=== PATIENT | female | born 1975 ===

== ENCOUNTER 2024-12-28 06:00 | Day surgery (SDC) | payer OTHER ==
[2024-12-20 11:19] VITALS: BP 170/100
[~2024-12-28] VITALS: Ht 165.1 cm; Wt 103.9 kg
[~2024-12-28 06:00] MED LIST: CLINDAMYCIN PHOSPHATE 150 MG/ML (900mg) IV SCH; COZAAR50 MG PO
[2024-12-28] MEDS ORDERED: CLINDAMYCIN PHOSPHATE 150 MG/ML (900mg) ONE (06:32)
[2024-12-28] MEDS ORDERED: POVIDONE-IODINE 118 ML BOTT TOP ONE (06:51)
[2024-12-28] MEDS ORDERED: PROMETHAZINE HCL 50 MG/ML AMPUL IM ONE (09:15)
[2024-12-28] MEDS ORDERED: AVIDOXY100 MG PO (09:18)
[2024-12-28] MEDS ORDERED: NAPR500T14 PO (09:18)
== END 2024-12-28 14:00 | disposition home or self-care (01) ==
LOC: CIR.AMB 06:00
PROVIDERS: ATTEND Obstetrics & Gynecology
DX: C54.1 Malignant neoplasm of endometrium (principal); N92.0 Excessive and frequent menstruation with regular cycle; N84.0 Polyp of corpus uteri; D25.0 Submucous leiomyoma of uterus